=== PATIENT | male | born 1950 | race Caucasian/White ===

== ENCOUNTER 2016-09-01 05:38 | Day surgery (SDC) | payer MEDICARE, OTHER ==
[2016-08-31 10:03] VITALS: BMI 26.4
[~2016-09-01] VITALS: Ht 170.2 cm; Wt 60.4 kg
[2016-09-01] VITALS (9 sets, daily range): BP systolic 146–170; BP diastolic 85–92; PULSE 74–100; RESP 10–20; Ht 170.2 cm; Wt 60.4 kg
[2016-09-01] MEDS ORDERED: CEFAZOLIN 1 GM INJ ONE (07:00)
[2016-09-01] MEDS ORDERED: ATOR40TA68 PO (07:04)
[2016-09-01] MEDS ORDERED: TAMS0.4C2 PO (07:04)
[2016-09-01] MEDS ORDERED: NOV70303I SC ×2 (07:04)
[2016-09-01] MEDS ORDERED: FURO40TA4 PO (07:04)
[2016-09-01] MEDS ORDERED: CALC667C PO (07:04)
[2016-09-01] MEDS ORDERED: PENT400T2 PO (07:04)
[2016-09-01] MEDS ORDERED: NIFE60TA7 PO (07:04)
[2016-09-01] MEDS ORDERED: MIDO5TAB19 PO (07:04)
--- NOTE | 2016-09-01 07:04 | HPN ---
Date/Time of Note Date/Time of Note DATE: 09/01/16 TIME: 07:04 Interval H&P Admission Note Pt. seen H&P reviewed: No system changes SHERIDAN BHAGAT MD Sep 01, 2016 07:04
--- NOTE | 2016-09-01 07:10 | RADRPT ---
PROCEDURE: XR Chest. CLINICAL INDICATION: Preoperative study TECHNIQUE: Single AP view of the chest were obtained COMPARISON: None FINDINGS: The heart is not enlarged. There is a right-sided double-lumen catheter that terminates at the SVC. The pulmonary vasculature are unremarkable. The aorta demonstrates atherosclerotic calcifications. There is no lung consolidation, pleural effusion or pneumothorax. Degenerative changes are seen w ithin the thoracic spine. There is no acute osseous abnormality. IMPRESSION: No acute disease. RPTAT: AA .Cristian Jiménez MD, Date Time Electronically viewed and signed by .Cristian Jiménez MD, on 09/01/2016 07:10 .J/
[2016-09-01 07:18] LABS: ADD SCAN DIFF NO
[2016-09-01] MEDS ORDERED: SOD CHLORIDE 0.9% 1,000 ML IV SCH (07:30)
[2016-09-01] MEDS ORDERED: DEXTROSE 50% 50 ML SYRINGE IV ONE (07:30)
[2016-09-01 07:35] LABS: BASOPHIL # 0.1 10^3/ul (0.0-0.1); EOSINOPHILS # 0.3 10^3/ul (0.0-0.5); EOSINOPHILS % 4.6 % (0.0-7.0); HEMATOCRIT 39.2 % (42.0-52.0); HEMOGLOBIN 12.8 g/dl (14.0-18.0); LYMPHOCYTES # 1.8 10^3/ul (0.8-2.9); LYMPHOCYTES % 25.5 % (15.0-51.0); MEAN CORPUSCULAR HEMOGLOBIN 31.5 pg (29.0-33.0); MEAN CORPUSCULAR HGB CONC 32.7 g/dl (32.0-37.0); MEAN CORPUSCULAR VOLUME 96.6 fl (82.0-101.0); MEAN PLATELET VOLUME 11.7 fl (7.4-10.4); MONOCYTE # 0.6 10^3/ul (0.3-0.9); MONOCYTES % 8.6 % (0.0-11.0); NEUTROPHIL # 4.1 10^3/ul (1.6-7.5); PLATELET COUNT 177 10^3/UL (140-415); RED BLOOD COUNT 4.06 10^6/ul (4.70-6.10); RED CELL DISTRIBUTION WIDTH 14.4 % (11.5-14.5); WHITE BLOOD COUNT 6.9 10^3/ul (4.8-10.8)
[2016-09-01] MEDS ORDERED: LIDOCAINE 1% (MPF) 30 ML INJ ONE (07:37)
[2016-09-01] MEDS ORDERED: GELATIN SIZE 100 SPONGE ONE (07:37)
[2016-09-01] MEDS ORDERED: HEPARIN 1000 UNITS/ML 10 ML INJ ONE (07:38)
[2016-09-01] MEDS ORDERED: THROMBIN 5000 UNIT VIAL ONE (07:38)
[2016-09-01] MEDS ORDERED: HEPARIN 1000 UNITS/ML 10 ML INJ IRR ONE (07:45)
[2016-09-01] MEDS ORDERED: LIDOCAINE 1% (MPF) 30 ML INJ INJ ONE (07:45)
[2016-09-01 07:48] LABS: INR 0.93; PROTIME 12.5 Sec (12.2-14.2)
[2016-09-01 07:49] LABS: PARTIAL THROMBOPLASTIN TIME 34.7 Sec (25.0-35.0)
[2016-09-01 07:53] LABS: ALBUMIN 3.6 g/dl (3.3-4.9); ALBUMIN/GLOBULIN RATIO 1.28; BILIRUBIN,INDIRECT 0.1 mg/dl (0-1.1); BILIRUBIN,TOTAL 0.1 mg/dl (0.2-1.3); TOTAL PROTEIN 6.4 g/dl (6.1-8.1)
[2016-09-01] MEDS ORDERED: MIDAZOLAM 1 MG/ML 2 ML INJ ONE (07:59)
[2016-09-01] MEDS ORDERED: ROPIVACAINE 0.5 % 30 ML VIAL ONE (07:59)
[2016-09-01] MEDS ORDERED: ROPIVACAINE 0.2% 20 ML VIAL ONE (08:01)
[2016-09-01 08:07] LABS: CREATININE 4.94 mg/dl (0.61-1.24)
[2016-09-01 08:09] LABS: POTASSIUM 5.1 mmol/L (3.5-5.1)
[2016-09-01] MEDS ORDERED: hydrALAzine 20 MG INJ ONE (08:26)
[2016-09-01] MEDS ORDERED: HYDROmorphONE (0.2 MG/ML) 10ML SYG IV PRN (09:00)
[2016-09-01] MEDS ORDERED: FENTAnyl 50 MCG/ML VIAL IV PRN (09:00)
[2016-09-01] MEDS ORDERED: DIPHENHYDRAMINE 50 MG INJ IV PRN (09:00)
[2016-09-01] MEDS ORDERED: hydrALAzine 20 MG INJ IV PRN (09:00)
[2016-09-01] MEDS ORDERED: ONDANSETRON 4 MG INJ IV PRN (09:00)
[2016-09-01] MEDS ORDERED: LABETALOL HCL 20MG INJ IV PRN (09:00)
--- NOTE | 2016-09-01 09:11 | OPR ---
Date/Time of Note Date/Time of Note DATE: 09/01/16 TIME: 09:10 Operative Report Preoperative Diagnosis ESRD Postoperative Diagnosis same Operation/Procedure Performed creation left arm AVF (snuffbox) Anesthesia: other Estimated Blood Loss: minimal Complications: None SHERIDAN BHAGAT MD Sep 01, 2016 09:11
--- NOTE | 2016-09-01 10:14 | RADRPT ---
Vent Rate: 78 bpm RR Interval: 0 msec ND Interval: 176 msec QRS Duration: 106 msec QT Interval: 424 msec QTC Interval: 483 msec P-R-T [place]: 47 - -77 - 87 degrees Normal sinus rhythm Left axis deviation Pulmonary disease pattern Nonspecific T wave abnormality Prolonged QT Abnormal ECG Electronically Signed By: Pedro Luis Laurent [id number]
--- NOTE | 2016-09-01 10:14 | OPR ---
DATE OF OPERATION: 09/01/2016 PREOPERATIVE DIAGNOSIS: End-stage renal disease. POSTOPERATIVE DIAGNOSIS: End-stage renal disease. PROCEDURE PERFORMED: Creation of left arm AV fistula. SURGEON: Sheridan Kaur MD ANESTHESIA: Regional block anesthetic. ESTIMATED BLOOD LOSS: Minimal. COMPLICATIONS: There were no intraprocedural complications. INDICATIONS: This is a 65-year-old hypertensive gentleman with end-stage renal disease, on dialysis via a PermCath. He has a good left arm cephalic vein. We brought him in today for creation of an AV fistula. DESCRIPTION OF PROCEDURE: Patient was brought to the operating room and placed on the table in the supine position. After induction of a scalene block, the left arm was prepped and draped in the usu al sterile fashion. I mapped his cephalic vein. It is a very nice vein from the anatomic snuff box all the way up to the upper arm. I made an incision over the very distal cephalic vein over the jerrell tomic snuff box, carefully dissected out the cephalic vein at this level. I divided the fascia over lying the snuffbox branch of the radial artery and dissected that out. It was nice and soft and goo d sized. I clamped it proximally and distally, made about an 8-mm long anterior arteriotomy. I then clipped the end of the vein very distally, transected it and then spatulated the end of it and then anastomosed the end of the vein to the side of the artery using a 6-0 Prolene suture in a running s tandard vascular surgical fashion. I removed the clamps. The vein dilated up nicely, there was a s oft thrill, there was good hemostasis. I closed the skin incision in 2 layers using an inner layer of 3-0 Vicryl and an outer layer of 4-0 Monocryl subcuticular sutures. Sterile dressing was applied . The patient was then transferred to the recovery room in stable condition. He tolerated the proc edure well without any complications. Dictated By: SHERIDAN DEXTER/BAL Conf#: [id number] DID#: [id number] CC: JENY ANTHONY MD;*EndCC*
== END 2016-09-01 11:10 | disposition home or self-care (01) ==
LOC: SDS 05:38
PROVIDERS: ATTEND Surgery Vascular Surgery
DX: I12.0 Hypertensive chronic kidney disease with stage 5 chronic kidney disease or end stage renal disease (principal); N18.6 End stage renal disease; E11.9 Type 2 diabetes mellitus without complications; E78.5 Hyperlipidemia, unspecified
CPT/HCPCS: 36821; 71010; 80053; 82962; 85025; 85610; 85730; 93005; C1725; J0360; J0690; J1644; J2250; J2795